=== PATIENT | male | born 1990 ===

== ENCOUNTER 2021-02-12 08:01 | Outpatient (CLI) | payer OTHER, SELFPAY ==
--- NOTE | 2021-02-12 08:51 | PC.NURSE ---
0838 Pt states after receiving Covid vaccine approximately 12 minutes later he started feeling slightly nauseaus. Pt was taken to an exam room and was put in lying position. Cold rag given, emesis bag given. Pt felt better after a few minutes. Pt did not ever get sick, and states he does this on ocassion when he gets a nose bleed. After 20 minutes pt was allowed to leave, vital signs stable. Pt felt much better. 114/62,100% oxygen,pulse 52. pt informed to go to ED if symptoms return. Pt verbalized understanding.
== END 2021-02-12 08:02 | disposition home or self-care (01) ==
LOC: ANHCOVIDVC 08:02
DX: Z23 Encounter for immunization (principal)
CPT/HCPCS: 0001A; 91300

== ENCOUNTER 2021-03-05 07:59 | Outpatient (CLI) | payer OTHER, SELFPAY | END 2021-03-05 08:00 | disposition home or self-care (01) | LOC: ANHCOVIDVC 07:59 | DX: Z23 Encounter for immunization (principal) | CPT/HCPCS: 0002A; 91300 ==